=== PATIENT | female | born 1970 | race Caucasian/White ===

== ENCOUNTER → 2024-06-12 12:20 | Outpatient (REF) | payer BC, SELFPAY | LOC: HWWDC 12:20 | PROVIDERS: ATTENDING PHYSICIAN Nurse Practitioner | DX: Z12.31 Encounter for screening mammogram for malignant neoplasm of breast (principal) | CPT/HCPCS: 77063; 77067 ==

== ENCOUNTER 2024-12-13 12:15 | Emergency (ER) | payer BC, SELFPAY ==
[2024-12-13 12:41] LABS: % Basophils 0.9 % (0-2); % Eosinophils 0.6 % (0-6); % Immature Granulocytes 0.7 % (0-0.5); % Lymphocytes 23.3 % (20.5-51.1); % Monocytes 7.3 % (1.7-9.3); % Neutrophils 67.2 % (42.2-75.2); Absolute Basophils 0.1 10^3/uL (0-0.2); Absolute Eosinophils 0.1 10^3/uL (0-0.7); Absolute Immature Granulocytes 0.1 10^3/uL (0-0.05); Absolute Lymphocytes 3.8 10^3/uL (1.2-3.4); Absolute Monocytes 1.2 10^3/uL (0.1-0.6); Hemoglobin 13.3 g/dL (12.0-16.0); Mean Corp Hgb Conc. 36.9 g/dL (33.0-37.0); Mean Corpuscular Hgb 31.9 pg (27.0-31.0); Mean Corpuscular Volume 86.3 fL (81.0-99.0); Mean Platelet Volume 9.5 fL (7.4-10.4); Nucleated Red Blood Cells % 0 %; Platelet Count 525 10^3/uL (130-400); Red Blood Cell Count 4.17 10^6/uL (4.20-5.40); Red Cell Dist. Width 12.8 % (11.5-14.5); White Blood Cell Count 16.4 10^3/uL (4.8-10.8)
[2024-12-13 12:54] LABS: ALT (SGPT) 23 U/L (0-35); AST (SGOT) 48 U/L (14-36); Albumin 4.6 g/dl (3.5-5.0); Alkaline Phosphatase 102 U/L (38-126); Blood Urea Nitrogen 13 mg/dl (7-17); Calcium 10.2 mg/dl (8.4-10.2); Carbon Dioxide 21 mmol/L (22-30); Chloride 102 mmol/L (98-107); Glucose 199 mg/dl (70-99); Lipase 133 U/L (23-300); Potassium 3.4 mmol/L (3.5-5.1); Sodium 137 mmol/L (135-145); Total Bilirubin 2.3 mg/dl (0.2-1.3); Total Protein 7.6 g/dl (6.3-8.2); eGFR > 60.00
[2024-12-13 13:00] VITALS: BP 109/67
--- NOTE | 2024-12-13 13:11 | ED.GENMED ---
History of Present Illness
General
Chief Complaint: Fainting/Passed Out
Time Seen by Provider: 12/13/24 12:28
History of Present Illness
History of Present Illness:
54-year-old female with history of xerocytosis presenting to the emergency department after syncopal episode. Patient was having a blood draw done in her house for an insurance policy. After the blood draw, had a syncopal episode and since then
has had persistent nausea, vomiting, difficulty tolerating p.o. at bedside, does note that she had a syncopal episode prior to getting a colonoscopy. Patient herself is very limited historian, fatigued, minimally compliant with
questioning. No report of any fall or trauma. Patient did have COVID about 3 weeks ago, otherwise no recent fever or illness. Patient reports that she feels nauseous. No report of any abdominal pain. No additional history obtained at this time
Past History
Past History
ED Past Medical History: Asthma and Other (Xerocytosis)
ED Past Surgical History: Cholecystectomy (15 yo), Gynecological (Colposcopy) and Other (spleenectomy 7 yo)
Social History
Tobacco: Non-smoker
Alcohol: Occasional
Drug: None
Personal: Single
Employment: Employed
Phy Exam
Physical Exam
Physical Exam:
General: Well-appearing, no clinical signs of dehydration, nontoxic and in no acute distress
HEENT: protecting airway
Neck: appears supple
CV: Normal heart rate, regular rhythm
Resp: No accessory muscle use, no increased work of breathing, lungs clear to auscultation bilaterally
Abd: Soft and non-distended, no tenderness to palpation
Extremities: No deformities, no swelling
Neuro: alert, no focal neurologic deficit, somnolent but arousable
: deferred
Rectal: deferred
Psych: Normal affect
Skin: Intact
Course
Orders/Labs/Results
Orders:
Orders
12/13/24 12:22
Electrocardiogram (*1) Urgent
Reason for Study: Abdominal Pain
EKG- Treatment ONCE
IV Insert/Care/Rem.- Treatment PRN
Urinalysis Reflex To Culture Urgent
Date Specimen was Collected: 12/13/24
Time Specimen was Collected: 12:22
12/13/24 12:23
Complete Blood Count/With Diff Urgent
Comprehensive Metabolic Panel Urgent
Lipase Urgent
12/13/24 13:03
0.9% Sodium Chloride 1000 ml [Nss] 1,000 ml IV BOLUS
12/13/24 13:48
0.9% Sodium Chloride 1000 ml [Nss] 1,000 ml IV BOLUS
Ondansetron Injectable [Zofran] 4 mg IV NOW STA
Abnormal Lab Results
12/13/24
12:23
WBC 16.4 H 10^3/uL
(4.8-10.8)
RBC 4.17 L 10^6/uL
(4.20-5.40)
Hct 36.0 L %
(37.0-47.0)
MCH 31.9 H pg
(27.0-31.0)
Plt Count 525 H 10^3/uL
(130-400)
Abs Immat Gran (auto) 0.1 H 10^3/uL
(0-0.05)
Absolute Neuts (auto) 11.0 H 10^3/uL
(1.4-6.5)
Absolute Lymphs (auto) 3.8 H 10^3/uL
(1.2-3.4)
Absolute Monos (auto) 1.2 H 10^3/uL
(0.1-0.6)
Immature Gran % 0.7 H %
(0-0.5)
Potassium 3.4 L mmol/L
(3.5-5.1)
Carbon Dioxide 21 L mmol/L
(22-30)
Glucose 199 H mg/dl
(70-99)
Total Bilirubin 2.3 H mg/dl
(0.2-1.3)
AST 48 H U/L
(14-36)
12/13/24 12:23
12/13/24 12:23
Vital Signs
Initial and Last Documented VS:
Initial Vital Signs
Pulse Resp Pulse Ox
77 20 97
12/13/24 12:28 12/13/24 12:28 12/13/24 12:28
Last Documented Vital Signs
Temp Pulse Resp BP Pulse Ox
95.2 F L 83 20 105/61 100
12/13/24 14:21 12/13/24 14:15 12/13/24 14:15 12/13/24 14:00 12/13/24 14:15
MDM/Problems Addressed
MDM/Problems Addressed:
54-year-old female with history of xerocytosis presenting after a syncopal episode after a blood draw at home. Vital signs are normal.
On exam, patient is in no acute distress, prior emesis before arrival. She appears somnolent, however arousable to stimuli. Suspect dehydration after syncopal episode and nausea and vomiting. Likely vasovagal, occurred after blood drawl.
at bedside notes that she was in her usual state of health prior to the blood draw. History of vasovagal syncope in the past. EKG obtained, nonischemic. Will plan for laboratory analysis and therapeutic management with IV fluids and reassess. No
present focal neurologic deficits without concern for central neurologic process
13:50 -patient does have leukocytosis, however has been found in the past as well. Suspect to be reactive. Labs also show elevated T. bili, however also seen in the past. On reassessment, no focal tenderness to the abdomen. Will continue IV
fluids and antiemetics
15:00 -on reassessment, patient notes that she is feeling slightly better. Will continue IV fluids.
15:50 -patient continues to clinically improved, ambulated to the bathroom. Feel stable for discharge. Will prescribe Zofran. Return precautions discussed.
*EKG
Interpreted by ED Provider?: Yes
EKG Intrepretation Date: 12/13/24
EKG Intrepretation Time: 13:16
Interpretation: normal
Heart Rate: 69
Rate: normal
Rhythm: sinus
[place]: normal axis
Interval: normal interval
QRS Pattern: normal QRS
Ischemia: no ischemia
*Critical Care Note
Total Time (30-74mins, 75-104mins- exclusive of procedures): Not Applicable
ED Attending Note
-
Portions of this chart may have been created with voice recognition software.� Occasional wrong word or��sound alike� substitutions may have occurred due to the inherent limitations of voice recognition software.
Discharge Plan
Departure
Patient with high blood pressure during this ER visit?: No
Condition: Good
Discharge Problem:
Syncope, Nausea and vomiting
Instructions: Nausea and vomiting in adults - ED discharge instructions
Prescriptions:
New
ondansetron 4 mg Tablet,Disintegrating
4 mg PO TIDPRN PRN (Reason: nausea/vomiting) Qty: 6 0RF
No Action
black cohosh 540 MG capsule
1 dose PO DAILY
Ilan's wort 150 MG capsule
1 dose PO DAILY
albuterol sulfate 1 PUFF HFA aerosol inhaler
2 puff inhalation R Q4HPRN PRN (Reason: shortness of breath)
horse chestnut 150 MG capsule
1 dose PO DAILY
multivitamin with folic acid [Tab-A-Ksenia] 1 TABLET tablet
1 tab PO DAILY
biotin 1 MG capsule
1 dose PO DAILY
L.acidoph,paracasei,B.animalis 1 EACH capsule
1 ea PO DAILY
acetaminophen 325 MG tablet
650 mg PO Q4HPRN PRN (Reason: mild pain/JAMISON/temp> 100.4F) 0RF
Referrals:
Ananth Pop MD [Family Provider] -
Activity Restrictions/Additional Instructions:
You were seen in the emergency department for nausea and vomiting with an episode of passing out.
We suspect that you had a vasovagal syncopal episode, which is a brief loss of blood flow to the brain, which can cause you to pass out. Afterward he started to have nausea and vomiting, which we suspect caused you to become dehydrated. He started
to feel better with IV fluids. Please continue to orally hydrate as tolerated.
Please follow-up closely with your primary care physician.
Return to the emergency department for any worsening of your symptoms, or any development of chest pain, difficulty breathing, abdominal pain with persistent vomiting and inability to tolerate food or liquid by mouth (concern for dehydration),
weakness, headache or confusion, fever greater than 100.4, or any additional symptoms that are concerning to you.
Thank you for choosing [facility].
Interventions
Interventions:
*Risk Screen - Suicide Last Done: 12/13/24 12:17
*General Assessment Last Done: 12/13/24 12:17
*Neglect/Abuse Screening Last Done: 12/13/24 12:17
ED- Cardiac Assessment Last Done: 12/13/24 12:55
ED- Neurological Assessment Last Done: 12/13/24 12:55
Discharge Date and Time
Print Language: [facility]
[2024-12-13] MEDS: NSS 1000 IV ×2 (13:21→13:52)
[2024-12-13] MEDS: ZOFRAN 4 MG IV (13:52)
[2024-12-13 14:00] VITALS: BP 105/61
[2024-12-13 15:00] VITALS: BP 95/66
== END 2024-12-13 17:23 | disposition home or self-care (01) ==
LOC: EMR 12:15
PROVIDERS: EMERGENCY PHYSICIAN Student in an Organized Health Care Education/Training Program; FAMILY PHYSICIAN Family Medicine
DX: R55 Syncope and collapse (principal); R11.2 Nausea with vomiting, unspecified; J45.909 Unspecified asthma, uncomplicated; Z90.49 Acquired absence of other specified parts of digestive tract
CPT/HCPCS: 96374; 96361; 99284; 80053; 83690; 85025; 93005

== ENCOUNTER → 2025-07-26 13:07 | Outpatient (REF) | payer BC, SELFPAY | LOC: HWWDC 13:07 | PROVIDERS: ATTENDING PHYSICIAN Nurse Practitioner | DX: Z12.31 Encounter for screening mammogram for malignant neoplasm of breast (principal) | CPT/HCPCS: 77063; 77067 ==